=== PATIENT | female | born 2005 | race Caucasian/White ===

== ENCOUNTER 2023-10-14 23:24 | Emergency (ER) | payer SELFPAY ==
[2023-10-14 23:28] VITALS: BP 113/72; PULSE 102; RESP 16; TEMP 98.1; BMI 24.4
[2023-10-15] MEDS ORDERED: diphenhydrAMINE HCL 25 MG CAPSULE (FP) PO ONE (00:04)
[2023-10-15] MEDS: diphenhydrAMINE HCL 25 MG CAPSULE (FP) PO ONE (00:08)
[2023-10-15] MEDS ORDERED: predniSONE 20 MG TABLET (UD) ONE (01:36)
[2023-10-15] MEDS ORDERED: FAMOTIDINE 20 MG TABLET ONE (01:36)
[2023-10-15] MEDS: FAMOTIDINE 10 MG TABLET PO ONE (01:41)
[2023-10-15] MEDS: predniSONE 20 MG TABLET (UD) PO ONE (01:41)
[2023-10-15] MEDS ORDERED: LORATADINE 10 MG TABLET ONE (02:05)
[2023-10-15] MEDS: LORATADINE 10 MG TABLET PO ONE (02:09)
== END 2023-10-15 02:24 | disposition home or self-care (01) ==
LOC: JER 23:24
DX: L50.0 Allergic urticaria (principal); R21 Rash and other nonspecific skin eruption
CPT/HCPCS: 99283-25

== ENCOUNTER 2024-05-08 22:21 | Emergency (ER) | payer OTHER ==
[2024-05-08 22:34] VITALS: BMI 23.4
[2024-05-08] MEDS ORDERED: IBUPROFEN 400 MG TABLET (FP) PO ONE (23:38)
[2024-05-08] MEDS ORDERED: ACETAMINOPHEN 500 MG TABLET (FP) ONE (23:38)
[2024-05-08] MEDS: IBUPROFEN 400 MG TABLET (FP) PO ONE (23:43)
[2024-05-08] MEDS: ACETAMINOPHEN 500 MG TABLET (FP) PO ONE (23:43)
[2024-05-09 00:23] VITALS: BP 116/68; PULSE 91; RESP 18; TEMP 98.2
== END 2024-05-09 01:04 | disposition home or self-care (01) ==
LOC: JERFT 22:21
DX: J02.9 Acute pharyngitis, unspecified (principal); R09.82 Postnasal drip; J06.9 Acute upper respiratory infection, unspecified; R09.81 Nasal congestion; R51.9 Headache, unspecified; R05.9 Cough, unspecified; Z20.822 Contact with and (suspected) exposure to COVID-19
CPT/HCPCS: 0241U-QW; 87651; 99283-25

== ENCOUNTER 2024-10-25 09:29 | Day surgery (SDC) | payer OTHER ==
[2024-10-25 10:10] LABS: EPI CELLS 10 /uL (0-25.1); HCG,QUALITATIVE URINE Negative; HYALINE CASTS 1 /uL (0-3.1); URINE APPEARANCE CLEAR; URINE BACTERIA 5558 /uL (0-1359); URINE BILIRUBIN NEGATIVE (NEGATIVE); URINE COLOR YELLOW; URINE GLUCOSE (UA) NEGATIVE (NEGATIVE); URINE KETONE NEGATIVE (NEGATIVE); URINE LEUK ESTERASE 1+ (NEGATIVE); URINE NITRITE NEGATIVE (NEGATIVE); URINE PROTEIN 1+ (NEGATIVE); URINE RBC 67 /uL (0-23.9); URINE UROBILINOGEN 0.2 mg/dL (0.2-1.0); URINE WBC 179 /uL (0-25.8)
[2024-10-25] MEDS ORDERED: ACETAMINOPHEN INJECTION 100 ML ONE (10:10)
[2024-10-25] MEDS: SODIUM CHLORIDE 0.9% 500 ML INFUS.BAG IV ONE (10:27)
[2024-10-25] MEDS: ACETAMINOPHEN 1000 MG/100 ML BAG IVPB ONE (10:27)
[2024-10-25 10:40] LABS: ABSOLUTE IMMATURE GRANULOCYTES 0.03 x10^3/uL (0.0-0.031); BASOPHILS # 0.03 x10^3/uL (0.01-0.08); EOSINOPHIL % 2.2 % (0.7-5.8); EOSINOPHILS # 0.19 x10^3/uL (0.04-0.36); HEMATOCRIT 39.3 % (34.1-44.9); HEMOGLOBIN 12.6 g/dL (11.2-15.7); MCHC 32.1 g/dl (32.2-35.5); MEAN CELL VOLUME 85.1 fl (79.4-94.8); MEAN PLT VOLUME 9.8 fl (9.4-12.3); MONOCYTE # 0.62 x10^3/uL (0.24-0.86); MONOCYTE % 7.3 % (4.7-12.5); PLATELET COUNT 262 x10^3/uL (182-369); RDW 13.3 % (12.1-16.5)
[2024-10-25 10:47] LABS: INR 1.04 (0.83-1.09); PROTHROMBIN TIME (PATIENT) 11.4 SEC (9.7-13.0)
[2024-10-25 10:50] LABS: ACTIVATED PTT 32.1 SECONDS (25.2-36.5)
[2024-10-25 11:06] LABS: POTASSIUM 3.8 mmol/L (3.5-5.1)
[2024-10-25 11:09] LABS: ALBUMIN 4.3 g/dl (3.4-5.0); BLOOD UREA NITROGEN 9.3 mg/dL (7-18); CALCIUM 9.4 mg/dL (8.5-10.1)
[2024-10-25 11:12] LABS: CREATININE 0.7 mg/dL (0.55-1.3)
[2024-10-25 11:13] LABS: BILIRUBIN,TOTAL 0.6 mg/dL (0.2-1)
[2024-10-25 11:16] LABS: TOT PROT 7.9 g/dl (6.4-8.2)
[2024-10-25] MEDS ORDERED: CEFTRIAXONE 1 G/50 ML PREMIX 50 ML IVPB ONE (12:20)
[2024-10-25] MEDS: CEFTRIAXONE 1,000 MG in DEXTROSE 5%-WATER - 50 ML IVPB ONE (12:24)
[2024-10-25] MEDS ORDERED: MIDAZOLAM HCL 2 MG/2 ML SINGLE DOSE VIAL ONE (13:10)
[2024-10-25] MEDS ORDERED: PROPOFOL 20 ML ONE (13:10)
[2024-10-25 15:04] VITALS: BMI 23.3
[2024-10-25] MEDS ORDERED: ACETAMINOPHEN 325 MG TABLET (FP) PO PRN (16:47)
[2024-10-25] MEDS: LACTATED RINGERS SOLUTION 1,000 ML/1,000 ML INFUS.BAG IV SCH (17:03)
[2024-10-25] MEDS: PHENAZOPYRIDINE HCL 100 MG TABLET (FP) PO SCH (21:52)
[2024-10-25] MEDS: ACETAMINOPHEN 1000 MG/100 ML BAG IVPB PRN (23:15)
[2024-10-26] MEDS: KETOROLAC TROMETHAMINE 15 MG/ML VIAL IVPUSH ONE (01:35)
[2024-10-26] MEDS: MELATONIN 5 MG TABLETS PO PRN (01:36)
[2024-10-26 03:19] VITALS: RESP 18; TEMP 97.9
[2024-10-26 10:13] VITALS: BP 115/71; PULSE 71
== END 2024-10-26 13:59 | disposition home or self-care (01) ==
LOC: JER 09:29 → JASUSAT 13:12 → SUATTDRO 13:12 → J7W 14:27 → UNDOADMOB 14:27 → J7W 10-26 11:47 → JASUSAT 10-26 13:59
PROC: 0T768DZ Dilation of Right Ureter with Intraluminal Device, Via Natural or Artificial Opening Endoscopic (ICD-10-PCS; principal; 2024-10-25 12:39)
DX: N20.1 Calculus of ureter (principal); N39.0 Urinary tract infection, site not specified
CPT/HCPCS: 36415; 74176-TC; 76000-TC-FY; 76705-TC; 80053; 81003; 83690; 84703; 85025; 85610; 85730; 86850; 86900; 86901; 87086; 87186; 94760; 99285-25; C2617